=== PATIENT | male | born 1975 | race Asian ===

== ENCOUNTER 2016-08-08 21:12 | Emergency (ER) | payer OTHER ==
[2016-08-08 21:21] VITALS: BP 145/96; PULSE 100; TEMP 97.6; BMI 37.1
--- NOTE | 2016-08-08 21:40 | PDOC ---
History of Present Illness - General History Source: Patient Exam Limitations: No Limitations - History of Present Illness Initial Comments: 08/08/16 21:40 The patient is a 40 year old male, with a significant past medical history of High cholesterol and CAD s/p stents who presents to the emergency department with lower abdominal pain for about 2 weeks The patient reports having diffuse lower abdominal pain that has been intermittent for 2 weeks. He reports these past 2 days his lower abdominal pain severely worsened, ranking his pain a 6/10 in pain intensity. Last bowel movement was this morning, but was noted to be small. He reports he was sent from Urgent Care to the here just prior to arrival. He denies any recent fevers, chills, headache or dizziness. He denies any recent nausea, vomit, or diarrhea. PAST MEDICAL HISTORY: See HPI PAST SURGICAL HISTORY: Cardiac stents FAMILY HISTORY: No pertinent history. SOCIAL HISTORY: Patient lives with family and is employed. MEDICATIONS: Reviewed. ALLERGIES: As per nursing notes. ROS General: No fevers or chills, no weakness, no weight loss HEENT: No change in vision. No sore throat. No ear pain CardioVascular: No chest pain or shortness of breath Respiratory:No cough, or wheezing. Gastrointestinal: +abdominal pain. No nausea, vomiting, diarrhea or constipation. No rectal bleeding Genitourinary: No dysuria, hematuria, or frequency Musculoskeletal: No joint or muscle pain or swelling Neurologic: No headache, vertigo, dizziness or loss of consciousness Psychiatric: No depression Skin: No rashes or easy bruising Endocrine: no increased thirst or abnormal weight change Allergic: no skin or latex allergy All other systems reviewed and normal Exam: General: Well-nourished well-developed individual, no acute distress HEENT: Throat: Normal, tonsils normal, no erythema or exudate Neck: Supple, no meningeal signs, no lymphadenopathy Eyes: Pupils equal reactive and round, extraocular motion intact Chest: Nontender to palpation Cardiac: S1-S2 normal, regular rate and rhythm, no murmurs rubs or gallops Respiratory: Lungs clear to auscultation bilateral Abdomen: Slightly distended abdomen. Soft, normal bowel sounds, nontender to palpation diffusely Extremities: Warm, dry, no cyanosis, clubbing, or edema Skin: No rashes Neuro: Alert and oriented x3, nonfocal exam, grossly intact, normal gait Psych: Normal mood and affect <O'Estill,Ken - Last Filed: 08/08/16 21:41> - General History Source: Patient Exam Limitations: No Limitations - History of Present Illness Initial Comments: 08/08/16 23:11 A portion of this note was documented by scribe services under my direction. I have reviewed the details of the note, within reason, and agree with the documentation. The case summary and management plan written by me. Assessment and plan: This is a 40-year-old male who has an extensive cardiac history and hypertension otherwise denies medical problems. Patient comes in complaining of 2 weeks of abdominal pain with constipation. Patient had a flat and upright abdomen that does show increased stool/ constipation Because of his cardiac history in the abdominal pain he also had a cardiogram that shows normal sinus rhythm at a rate of [address]-T wave changes but old inferior infarct. Patient remained comfortable throughout his stay in the emergency room. On exam he is abdomen was soft slightly to 10 distended but nontender Patient does have a mild upper respiratory tract infection and a white count of 11.5 which is most likely secondary to his upper respiratory tract infection. Patient vitals were otherwise normal and his blood work was unremarkable. Including a negative troponin. Patient discharged home with a bottle of mag citrate and will follow-up with his primary care doctor. Patient also given a prescription for MiraLAX. <Ector Lowry I - Last Filed: 08/08/16 23:15> - General Chief Complaint: Pain Stated Complaint: LOWER ABD PAIN Time Seen by Provider: 08/08/16 21:26 Past History <Ken Clark - Last Filed: 08/08/16 21:41> - Psycho/Social/Smoking Cessation Hx Anxiety: No Suicidal Ideation: No Smoking History: Unknown if ever smoked Have you smoked in the past 12 months: No Number of Cigarettes Smoked Daily: 0 Information on smoking cessation initiated: No Hx Alcohol Use: No Drug/Substance Use Hx: No Substance Use Type: Alcohol <Ector Lowry I - Last Filed: 08/08/16 23:15> - Past Medical History Allergies/Adverse Reactions: Allergies Allergy/AdvReac Type Severity Reaction Status Date / Time No Known Allergies Allergy Unverified 08/08/16 21:16 Home Medications: Ambulatory Orders Metoprolol Tartrate 25 mg PO DAILY 04/26/17 Polyethylene Glycol 3350 [Miralax (For Daily Use) -] 17 gm PO DAILY #1 bottle Ramipril 5 mg PO DAILY 08/08/16 *Physical Exam - Vital Signs Last Vital Signs Temp Pulse Resp BP Pulse Ox 97.6 F 100 H 16 145/96 99 08/08/16 21:13 08/08/16 21:13 08/08/16 21:13 08/08/16 21:13 08/08/16 21:13 <Ken Clark - Last Filed: 08/08/16 21:41> - Vital Signs Last Vital Signs Temp Pulse Resp BP Pulse Ox 97.6 F 100 H 16 145/96 99 08/08/16 21:13 08/08/16 21:13 08/08/16 21:13 08/08/16 21:13 08/08/16 21:13 <Ector Lowry I - Last Filed: 08/08/16 23:15> ED Treatment Course - LABORATORY CBC & Chemistry Diagram: 08/08/16 22:04 08/08/16 22:04 <Ector Lowry I - Last Filed: 08/08/16 23:15> *DC/Admit/Observation/Transfer - Attestations Scribe Attestion: 08/08/16 21:40 Documentation prepared by Ken Clark, acting as medical physics researcher for Ector Lowry MD. <Ken Clark - Last Filed: 08/08/16 21:41> <Ector Lowry I - Last Filed: 08/08/16 23:15> Diagnosis at time of Disposition: Constipation, Abdominal pain - Discharge Dispostion Disposition: HOME Condition at time of disposition: Good - Prescriptions Prescriptions: Polyethylene Glycol 3350 [Miralax (For Daily Use) -] 17 gm PO DAILY #1 bottle - Patient Instructions Additional Instructions: Drink the bottle mag citrate that you're given tomorrow morning. Take the MiraLAX as prescribed for constipation Return to the emergency department immediately with ANY new, persistent or worsening symptoms. Continue any medications as previously prescribed by your physician. You should follow up with your primary doctor as soon as possible regarding today's emergency department visit. . Please make sure your doctor reviews the results of your emergency evaluation. Thank you for coming to the Emergency Department today for your care. It was a pleasure to see you today. Please note that your evaluation is INCOMPLETE until you follow-up with your doctor.
[2016-08-08 22:36] LABS: EOSINOPHIL 4.1 % (0-4.5); MEAN PLT VOLUME 8.7 fl (7.5-11.1)
[2016-08-08 22:40] LABS: MCH 30.4 pg (25.7-33.7); MCHC 35.2 g/dl (32.0-35.9); MEAN CELL VOLUME 86.4 fl (80-96); NEUTROPHILS 52.2 % (42.8-82.8); PLATELET COUNT 176 K/MM3 (134-434); WHITE BLOOD COUNT 11.5 K/mm3 (4.0-10.8)
[2016-08-08 22:51] LABS: TROPONIN I (DFP) < 0.03 ng/ml (0.03-0.50)
[2016-08-08 22:56] LABS: CPK(DFH) 121 IU/L (38-174)
[2016-08-08 23:00] LABS: ALK PHOS 60 U/L (32-92); ANION GAP 9 (8-16); BILIRUBIN,TOTAL 0.3 mg/dl (0.2-1.0); CALCIUM 8.7 mg/dl (8.4-10.2); CO2 23 mmol/L (22-28); CREATININE 0.9 mg/dl (0.6-1.3); GLUCOSE,RANDOM 118 mg/dl (74-106); SGOT/AST 22 U/L (10-42); SGPT/ALT 30 U/L (10-40); TOT PROT 6.6 g/dl (6.4-8.3)
[2016-08-08] MEDS ORDERED: MAGNESIUM CITRATE 300 ML BOTTLE PO ONE (23:10)
--- NOTE | 2016-08-09 12:57 | EKG ---
Test Reason : Blood Pressure : / mmHG Vent. Rate : 082 BPM Atrial Rate : 082 BPM P-R Int : 146 ms QRS Dur : 094 ms QT Int : 378 ms P-R-T Axes : 049 -32 -14 degrees QTc Int : 441 ms NORMAL SINUS RHYTHM LEFT AXIS DEVIATION MINIMAL VOLTAGE CRITERIA FOR LVH, MAY BE NORMAL VARIANT INFERIOR INFARCT , AGE UNDETERMINED POOR R WAVE PROGRESSION NONSPECIFIC T WAVE ABNORMALITY NO PREVIOUS ECGS AVAILABLE Confirmed by FELECIA RIVERA, LEOPOLDO ([id number]) on 08/09/2016 12:57:07 PM Referred By: MD HAZEL Confirmed By:LEOPOLDO IZQUIERDO MD
== END 2016-08-08 23:33 | disposition home or self-care (01) ==
LOC: FER 21:12
DX: K59.00 Constipation, unspecified (principal); E78.00 Pure hypercholesterolemia, unspecified; I25.10 Atherosclerotic heart disease of native coronary artery without angina pectoris; Z95.5 Presence of coronary angioplasty implant and graft
CPT/HCPCS: 36415; 71020-TC; 74190-TC; 80053; 82550; 84484; 85025; 93005; 99283-25